=== PATIENT | male | born 1965 | race Two or more races ===

== ENCOUNTER 2017-01-13 16:31 | Emergency (ER) | payer MEDICAID ==
[~2017-01-13] VITALS: Ht 175.3 cm; Wt 102.5 kg
[2017-01-13 16:40] VITALS: BP 127/87
== END 2017-01-13 19:59 | disposition home or self-care (01) ==
LOC: ER 16:42
DX: S63.601A Unspecified sprain of right thumb, initial encounter (principal); S90.425A Blister (nonthermal), left lesser toe(s), initial encounter; F17.210 Nicotine dependence, cigarettes, uncomplicated; X50.9XXA Other and unspecified overexertion or strenuous movements or postures, initial encounter; Y93.89 Activity, other specified; Y99.8 Other external cause status; Y92.89 Other specified places as the place of occurrence of the external cause
CPT/HCPCS: 73630

== ENCOUNTER 2017-01-25 16:57 | Emergency (ER) | payer MEDICAID | END 2017-01-25 21:05 | disposition home or self-care (01) | LOC: ER 17:07 | DX: M79.672 Pain in left foot (principal); F17.210 Nicotine dependence, cigarettes, uncomplicated | CPT/HCPCS: 73630 ==